=== PATIENT | male | born 1960 | race Caucasian/White ===

== ENCOUNTER 2022-02-04 00:24 | Day surgery (SDC) | payer BC, OTHER, SELFPAY ==
[2021-10-15 15:09] VITALS: BMI 26.9
--- NOTE | 2021-10-27 11:54 | PM.HPGS ---
History of Present Illness History of Present Illness Consent: Risks, benefits, and alternatives have been discussed and questions answered. Patient agrees to proceed with procedure. Chief complaint: neoplasm screening Narrative: Javi Bashir is a 61 year old male Who is referred for colon cancer screening. Review of Systems Review of Systems: All systems reviewed & are unremarkable except as noted in HPI and below PMFSH Past Medical History Medical History Anxiety Aphasia Chronic atrial fibrillation CVA (cerebral vascular accident) 07/10/2014 Hypercholesterolemia Hypertension Hypothyroidism Sleep apnea Surgical History Surgical History History of incision and drainage 06/06/20 back abscess Hydrocele Surgery 11/2017 Family History Family History Father CAD (coronary artery disease) Lung disease Mother Hypothyroidism Cancer Son CAD (coronary artery disease) Grandparent Cerebrovascular accident Social History Social History Smoking packs per day: 0.5 Smoking cigarettes per day: 10.0 Years smoked: 20 Smoking pack-years: 10.00 Smoking status: Former smoker Tobacco type: cigarettes Alcohol intake: current Drinks per week: 6 Alcohol use details: Pt drinks wine weekly. Substance use: never Substance use type: does not use Living arrangements: with family Spiritual care concerns: No Meds Home Medications and Allergies Home Medications Medication Instructions Recorded Confirmed Type amlodipine 10 mg tablet 10 mg PO DAILY #90 tabs 09/25/20 10/15/21 Rx atorvastatin 40 mg tablet 40 mg PO QHS #90 tabs 09/25/20 10/15/21 Rx metoprolol tartrate 25 mg tablet 25 mg PO BID #180 tabs 10/14/20 10/15/21 Rx levothyroxine 125 mcg tablet 125 mcg PO DAILY #90 tabs 03/05/21 10/15/21 Rx apixaban 5 mg tablet (Eliquis) 5 mg PO BID #180 tabs 05/06/21 10/15/21 Rx lisinopril 40 mg tablet 40 mg PO DAILY #90 tabs 09/16/21 10/15/21 Rx sodium sul 1.479 gram-potas ch See Rx Instructions PO PER PKG DIR 10/07/21 10/15/21 Rx 0.188 gram-magnes sul 0.225 gram #24 tabs tablet (Sutab) venlafaxine 150 mg tablet,extended 150 mg PO DAILY #90 tabs 10/27/21 Rx release 24 hr Allergies Allergy/AdvReac Type Severity Reaction Status Date / Time erythromycin base Allergy Severe Anaphylaxis Verified 10/15/21 15:09 Exam Resp: Auscultation: clear to auscultation bilaterally Cardio: Rate: regular rate Rhythm: regular rhythm GI: GI Palp: Yes Soft to palpation and No Tenderness to palpation present (GI) Assessment and Plan Assessment and plan (1) Screening for colon cancer: Code(s): Z12.11 - Encounter for screening for malignant neoplasm of colon Status: Acute Assessment and Plan: Colonoscopy with possible biopsy or polypectomy or cautery or injection of substances.
[2021-11-11 14:28] VITALS: BMI 26.9
--- NOTE | 2022-01-12 16:52 | PM.HPGS ---
History of Present Illness History of Present Illness Consent: Risks, benefits, and alternatives have been discussed and questions answered. Patient agrees to proceed with procedure. Chief complaint: neoplasm screening Narrative: Javi Bashir is a 61 year old male who was referred for colon cancer screening. Review of Systems Review of Systems: All systems reviewed & are unremarkable except as noted in HPI and below PMFSH Past Medical History Medical History (Updated 10/29/21 @ 14:54 by Georgiana Delgadillo NP) Anxiety Aphasia Chronic atrial fibrillation CVA (cerebral vascular accident) 07/10/2014 Hypercholesterolemia Hypertension Hypothyroidism Sleep apnea Surgical History Surgical History History of incision and drainage 06/06/20 back abscess Hydrocele Surgery 11/2017 Family History Family History Father CAD (coronary artery disease) Lung disease Mother Hypothyroidism Cancer Son CAD (coronary artery disease) Grandparent Cerebrovascular accident Social History Social History Smoking packs per day: 0.5 Smoking cigarettes per day: 10.0 Years smoked: 20 Smoking pack-years: 10.00 Smoking status: Former smoker Tobacco type: cigarettes Alcohol intake: current Drinks per week: 6 Alcohol use details: Pt drinks wine weekly. Substance use: never Substance use type: does not use Spiritual care concerns: No Meds Home Medications and Allergies Home Medications Medication Instructions Recorded Confirmed Type levothyroxine 125 mcg tablet 125 mcg PO DAILY #90 tabs 03/05/21 01/06/22 Rx apixaban 5 mg tablet (Eliquis) 5 mg PO BID #180 tabs 05/06/21 01/06/22 Rx lisinopril 40 mg tablet 40 mg PO DAILY #90 tabs 09/16/21 01/06/22 Rx sodium sul 1.479 gram-potas ch See Rx Instructions PO PER PKG DIR 10/07/21 01/06/22 Rx 0.188 gram-magnes sul 0.225 gram #24 tabs tablet (Sutab) venlafaxine 150 mg 150 mg PO DAILY #90 caps 10/29/21 01/06/22 Rx capsule,extended release 24 hr amlodipine 10 mg tablet See Rx Instructions .Route 11/26/21 01/06/22 Rx .COMPLEX #90 tabs metoprolol tartrate 25 mg tablet See Rx Instructions .Route 11/26/21 01/06/22 Rx .COMPLEX #180 tabs atorvastatin 40 mg tablet See Rx Instructions .Route 11/27/21 01/06/22 Rx .COMPLEX #90 tabs Allergies Allergy/AdvReac Type Severity Reaction Status Date / Time erythromycin base Allergy Severe Anaphylaxis Verified 01/06/22 09:54 Exam Const: General: alert Orientation/consciousness: patient oriented x3 Resp: Auscultation: clear to auscultation bilaterally Cardio: Rhythm: regular rhythm GI: GI Palp: Yes Soft to palpation and No Tenderness to palpation present (GI) Neuro: General: patient oriented x3 Assessment and Plan Assessment and plan (1) Screening for colon cancer: Code(s): Z12.11 - Encounter for screening for malignant neoplasm of colon Status: Acute
[2022-01-28 13:15] VITALS: BMI 26.9
[2022-02-04 11:13] VITALS: BP 132/89; PULSE 77; RESP 20; TEMP 36.4; O2SAT 100; BMI 27.3
[2022-02-04] MEDS: LACTATED RINGERS 1,000 ML 150 ML IV CONT (11:29)
--- NOTE | 2022-02-04 11:53 | PM.HPGS ---
History of Present Illness History of Present Illness Consent: Risks, benefits, and alternatives have been discussed and questions answered. Patient agrees to proceed with procedure. Chief complaint: neoplasm screening Narrative: Javi Bashir is a 61 year old male referred for colon cancer screening. Review of Systems Review of Systems: All systems reviewed & are unremarkable except as noted in HPI and below PMFSH Past Medical History Medical History Anxiety Aphasia Chronic atrial fibrillation CVA (cerebral vascular accident) 07/10/2014 Hypercholesterolemia Hypertension Hypothyroidism Sleep apnea Surgical History Surgical History History of incision and drainage 06/06/20 back abscess Hydrocele Surgery 11/2017 Family History Family History Father CAD (coronary artery disease) Lung disease Mother Hypothyroidism Cancer Son CAD (coronary artery disease) Grandparent Cerebrovascular accident Social History Social History Smoking packs per day: 0.5 Smoking cigarettes per day: 10.0 Years smoked: 20 Smoking pack-years: 10.00 Smoking status: Former smoker Tobacco type: cigarettes Alcohol intake: current Drinks per week: 6 Alcohol use details: Pt drinks wine weekly. Substance use: never Substance use type: does not use Living arrangements: with family Spiritual care concerns: No Meds Home Medications and Allergies Home Medications Medication Instructions Recorded Confirmed Type lisinopril 40 mg tablet 40 mg PO DAILY #90 tabs 09/16/21 01/25/22 Rx sodium sul 1.479 gram-potas ch See Rx Instructions PO PER PKG DIR 10/07/21 01/25/22 Rx 0.188 gram-magnes sul 0.225 gram #24 tabs tablet (Sutab) amlodipine 10 mg tablet See Rx Instructions .Route 11/26/21 01/25/22 Rx .COMPLEX #90 tabs metoprolol tartrate 25 mg tablet See Rx Instructions .Route 11/26/21 01/25/22 Rx .COMPLEX #180 tabs atorvastatin 40 mg tablet See Rx Instructions .Route 11/27/21 01/25/22 Rx .COMPLEX #90 tabs levothyroxine 125 mcg tablet See Rx Instructions .Route 01/18/22 02/04/22 Rx .COMPLEX #90 tabs venlafaxine 150 mg See Rx Instructions .Route 01/18/22 02/04/22 Rx capsule,extended release 24 hr .COMPLEX #30 caps apixaban 5 mg tablet (Eliquis) 5 mg PO BID HISTORY OF A FIB 02/04/22 History Allergies Allergy/AdvReac Type Severity Reaction Status Date / Time erythromycin base Allergy Severe Anaphylaxis Verified 02/04/22 11:12 Vital Signs Vital Signs - 24 hr 02/04/22 11:13 Temperature 36.4 C L Pulse Rate 77 Respiratory Rate 20 Blood Pressure 132/89 Pulse Oximetry 100 Oxygen Delivery Room Air Exam Resp: Auscultation: clear to auscultation bilaterally Cardio: Rate: regular rate Rhythm: regular rhythm GI: GI Palp: Yes Soft to palpation and No Tenderness to palpation present (GI) Assessment and Plan Assessment and plan (1) Screening for colon cancer: Code(s): Z12.11 - Encounter for screening for malignant neoplasm of colon Status: Acute Assessment and Plan: Colonoscopy with possible biopsy or polypectomy or cautery or injection of substances.
--- NOTE | 2022-02-04 12:00 | WPDANESEPPF ---
Anes - Initial Pre Proc Eval Procedure: Operation Date: 02/04/22 12:30 Proposed Procedures p Screening Colonoscopy - Leonard Montano MD Date/Time: 02/04/22 12:00 Surgeon: Leonard Montano MD Pre Op Diagnosis: neoplasm screening Patient Data Age: 61 Gender: M Height: 1.88 m Weight: 96.8 kg Last Vital Signs Temp 97.5 F L 02/04/22 11:13 Pulse 77 02/04/22 11:13 Resp 20 02/04/22 11:13 BP 132/89 02/04/22 11:13 Pulse Ox 100 02/04/22 11:13 O2 Del Method Room Air 02/04/22 11:13 Allergies Allergy/AdvReac Type Severity Reaction Status Date / Time erythromycin base Allergy Severe Anaphylaxis Verified 02/04/22 11:12 Home Medications Medication Instructions Recorded Confirmed Type lisinopril 40 mg tablet 40 mg PO DAILY #90 tabs 09/16/21 01/25/22 Rx sodium sul 1.479 gram-potas ch See Rx Instructions PO PER PKG DIR 10/07/21 01/25/22 Rx 0.188 gram-magnes sul 0.225 gram #24 tabs tablet (Sutab) amlodipine 10 mg tablet See Rx Instructions .Route 11/26/21 01/25/22 Rx .COMPLEX #90 tabs metoprolol tartrate 25 mg tablet See Rx Instructions .Route 11/26/21 01/25/22 Rx .COMPLEX #180 tabs atorvastatin 40 mg tablet See Rx Instructions .Route 11/27/21 01/25/22 Rx .COMPLEX #90 tabs levothyroxine 125 mcg tablet See Rx Instructions .Route 01/18/22 02/04/22 Rx .COMPLEX #90 tabs venlafaxine 150 mg See Rx Instructions .Route 01/18/22 02/04/22 Rx capsule,extended release 24 hr .COMPLEX #30 caps apixaban 5 mg tablet (Eliquis) 5 mg PO BID HISTORY OF A FIB 02/04/22 History Patient hx anesthesia problems: none Family hx anesthesia problems: none Results Review: All pre-operative results and documents have been reviewed as part of the pre-operative evaluation. [facility] Past Medical History Medical History Anxiety Aphasia Chronic atrial fibrillation CVA (cerebral vascular accident) 07/10/2014 Hypercholesterolemia Hypertension Hypothyroidism Sleep apnea Surgical History Surgical History History of incision and drainage 06/06/20 back abscess Hydrocele Surgery 11/2017 Family History Family History Father CAD (coronary artery disease) Lung disease Mother Hypothyroidism Cancer Son CAD (coronary artery disease) Grandparent Cerebrovascular accident Social History Social History Smoking packs per day: 0.5 Smoking cigarettes per day: 10.0 Years smoked: 20 Smoking pack-years: 10.00 Smoking status: Former smoker Tobacco type: cigarettes Alcohol intake: current Drinks per week: 6 Alcohol use details: Pt drinks wine weekly. Substance use: never Substance use type: does not use Living arrangements: with family Spiritual care concerns: No Anes - Eval Final PreProcedure Day of Procedure 02/04/22 12:00 Patient weight: normal Heart: regular rate and rhythm Lungs: clear to auscultation Airway: Mallampati scale class III Neurological: alert and oriented Last oral intake: >/= 8 hours ASA classification: III Emergent: no Anesthetic plan: proceed Anesthesia type and monitoring: general GIVS and standard monitoring Results Review: All pre-operative results and documents have been reviewed as part of the pre-operative evaluation. Informed Consent: The patient's anesthetic plan and its attendant risks and benefits were discussed with the patient/family/POA. Questions were solicited and answers provided to the satisfaction of the patient/family/POA.
[2022-02-04 12:48] VITALS: BP 95/71; PULSE 71; RESP 18; O2SAT 93
[2022-02-04 12:58] VITALS: BP 109/75; PULSE 64; RESP 20; O2SAT 99
[2022-02-04 13:08] VITALS: BP 116/73; PULSE 68; RESP 19; O2SAT 100
== END 2022-02-04 13:23 | disposition home or self-care (01) ==
PROVIDERS: PCP Internal Medicine; Visit Provider Internal Medicine Gastroenterology
PROC: 0DJD8ZZ Inspection of Lower Intestinal Tract, Via Natural or Artificial Opening Endoscopic (ICD-10-PCS; CPT 45378; principal; 2022-02-04 12:30)
DX: Z12.11 Encounter for screening for malignant neoplasm of colon (principal); D12.3 Benign neoplasm of transverse colon; D12.5 Benign neoplasm of sigmoid colon; I10 Essential (primary) hypertension; E78.00 Pure hypercholesterolemia, unspecified; E03.9 Hypothyroidism, unspecified; G47.30 Sleep apnea, unspecified; I48.20 Chronic atrial fibrillation, unspecified; F41.9 Anxiety disorder, unspecified; Z79.01 Long term (current) use of anticoagulants; Z87.891 Personal history of nicotine dependence
CPT/HCPCS: 45380; 45385; 88305; J2704; J7120

== ENCOUNTER 2023-06-22 10:19 | Outpatient (CLI) | payer OTHER, SELFPAY ==
[2023-06-22 10:44] LABS: Basophils Absolute Auto 0.04 K/mm3 (0.00-0.10); Basophils Percent Auto 0.7 % (0.0-1.0); Eosinophils Absolute Auto 0.22 K/mm3 (0.02-0.50); Eosinophils Percent Auto 3.9 % (1.0-6.0); Hematocrit 45.8 % (40.0-54.0); Immature Granulocyte Absolute 0.02 K/mm3 (0.00-0.00); Immature Granulocyte Percent A 0.4 % (0.0-0.0); Lymphocytes Absolute Auto 1.51 K/mm3 (1.10-4.50); Lymphocytes Percent Auto 26.8 % (18.0-42.0); Mean Corpuscular HGB Conc 34.9 g/dL (32.0-36.0); Mean Corpuscular Hemoglobin 31.2 pg (27.0-31.0); Mean Corpuscular Volume 89.3 fL (78.0-102.0); Mean Platelet Volume 9.9 fl (8.7-11.0); Monocytes Absolute Auto 0.49 K/mm3 (0.10-0.90); Monocytes Percent Auto 8.7 % (2.0-11.0); Neutrophils Absolute Auto 3.4 K/mm3 (1.7-7.2); Neutrophils Percent Auto 59.5 % (50.0-70.0); Platelet Count Result 195 K/mm3 (150-420); Red Blood Count 5.13 M/mm3 (4.70-6.10); Red Cell Distribution Width 12.3 % (11.6-14.4); White Blood Count 5.6 K/mm3 (4.8-10.8)
[2023-06-22 11:28] LABS: Alanine Aminotransferase 51 U/L (16-63); Albumin Level 4.2 g/dL (3.4-5.0); Alkaline Phosphatase 68 U/L (46-116); Anion Gap 10 mmol/L (8-16); Aspartate Amino Transferase 25 U/L (15-37); Bilirubin,Total 0.8 mg/dL (0.00-1.00); Blood Urea Nitrogen 18 mg/dL (7-18); Calcium 8.6 mg/dL (8.5-10.1); Carbon Dioxide 27 mmol/L (21-32); Chloride 101 mmol/L (98-108); Cholesterol 150 mg/dL (0-200); Estimated Glomerular Filt Rate > 60; Glucose 101 mg/dL (70-99); HDL Direct 53 mg/dL (40-60); LDL Cholesterol Calculated 78 mg/dL (<130); Osmolality Calculated 287 mOsm/kg (285-295); Prostate Specific Antigen 0.8 ng/mL (< OR = 4.0); Sodium 138 mmol/L (136-145); Total Protein 7.4 g/dL (6.4-8.2); Triglycerides 93 mg/dL (0-150)
== END 2023-06-22 10:20 | disposition home or self-care (01) ==
LOC: CHSLAB 10:21
PROVIDERS: PCP Internal Medicine; Visit Provider Nurse Practitioner
DX: Z13.29 Encounter for screening for other suspected endocrine disorder (principal); Z12.5 Encounter for screening for malignant neoplasm of prostate; I10 Essential (primary) hypertension; E78.00 Pure hypercholesterolemia, unspecified; E03.9 Hypothyroidism, unspecified; R31.9 Hematuria, unspecified
CPT/HCPCS: 36415; 80053; 80061; 84153; 84443; 85025; G0103

== ENCOUNTER 2024-06-07 11:23 | Outpatient (CLI) | payer OTHER, SELFPAY ==
--- NOTE | ~2024-06-07 | US_ITS ---
EXAMINATION: US thyroid DATE: 06/07/2024 12:09 INDICATION: Hypothyroidism, unspecified. TECHNIQUE: Multiple ultrasound images of the thyroid were obtained. COMPARISON: None. FINDINGS: The right thyroid lobe measures 4.7 x 0.9 x 1.2 cm. The left thyroid lobe measures 4.7 x 1.9 x 0.7 c m. The thyroid demonstrates heterogeneous echogenicity. Vascularity is normal. The left thyroid lobe , there is a 2.0 cm solid, hypoechoic, wider than tall nodule with lobulated margin without echogenic foci (TI-RADS TR4). IMPRESSION: 1. Left thyroid nodule. Ultrasound-guided fine-needle aspiration is recommended. Reviewed, dictated and finalized at location A. T SPA DESK IMPRESSION: 1. Left thyroid nodule. Ultrasound-guided fine-needle aspiration is recommended .
--- OUTSIDE RECORDS SUMMARY | 2024-06-07 11:48 | XMS_ITS | Clinical Summary ---
Author Organization [facility] Address [address] [place] [address] Phone Care Team Providers Care Survey Research Professor Name Role Phone Abel Mckenna DO Primary Care Provider Edward Ferrer MD Unavailable Allergies Active Allergy Reactions Criticality Noted Date Comments Azithromycin Swelling,Other (see Comments) High 05/2017 Throat swells Medications apixaban (ELIQUIS) 5 MG Tablet Take 5 mg by mouth 2 times daily. Active METOPROLOL TARTRATE PO Take 25 mg by mouth 2 times daily. Active lisinopril (PRINIVIL, ZESTRIL) 10 MG Tablet Take 10 mg by mouth daily. Active levothyroxine (SYNTHROID) 150 MCG Tablet Take 125 mcg by mouth daily. Active venlafaxine (EFFEXOR) 75 MG Tablet Take 225 mg by mouth daily. Active atorvastatin (LIPITOR) 80 MG Tablet Take 80 mg by mouth daily. Active amLODIPine (NORVASC) 10 MG Tablet Take 10 mg by mouth daily. 11/28/2021 Active atorvastatin (LIPITOR) 40 MG Tablet TAKE 1 TABLET BY MOUTH AT BEDTIME 11/27/2021 Active lisinopril (PRINIVIL, ZESTRIL) 40 MG Tablet Take 40 mg by mouth daily. 11/29/2021 Active oxybutynin (DITROPAN-XL) 10 MG TABLET SR 24 HR Take 10 mg by mouth daily. 11/29/2023 Active tamsulosin (FLOMAX) 0.4 MG Capsule TAKE 1 CAPSULE BY MOUTH DAILY AT BEDTIME 12/07/2023 Active Active Problems Problem Noted Date Diagnosed Date Adjustment disorder with anxiety 06/21/2018 Scrotal hematoma 11/15/2017 Hydrocele 10/25/2017 Immunizations Immunization Administration Dates Next Due Influenza Vaccine 02/07/2015 Influenza Vaccine, MDCK,quadrivalent, pres free 03/05/2016 Influenza Vaccine, Quadrivalent, PF 01/25/2018,1 Influenza, high-dose, trivalent, PF 02/26/2014,1 04/23/2012 Family History Medical History Relation Name Comments Heart Attack Father Urinary Tract Infections Mother Relation Name Status Comments Father Mother Social History Tobacco Use Types Packs/Day Years Used Date Smoking Tobacco: Former Cigarettes Q uit: 10/17/2002 Smokeless Tobacco: Never Alcohol Use Standard Drinks/Week Comments Yes 4 (1 standard drink = 0.6 oz pur e alcohol) Sexually Active Control Partners Comments Not Currently Female Sex and Gender Information Value Date Recorded Sex Assigned at Not on file Legal Sex Male 11:59 PM CDT Gender Identity Not on file Sexual Orientation Not on file Last Filed Vital Signs Vital Sign Reading Time Taken Comments Blood Pressure 130/86 01/02/2024 3:26 PM CDT Pulse 70 01/02/2024 3:26 PM CDT Temperature 36.7 C (98.1 F) 01/02/2024 3:26 PM CDT Respiratory Rate 18 01/02/2024 3:26 PM CDT Oxygen Saturation 97% 01/02/2024 3:26 PM CDT Inhaled Oxygen Concentration - - Weight 112.1 kg (247 lb 3.2 oz) 01/02/2024 3:26 PM CDT Height 188 cm (6' 2 ) 01/02/2024 3:26 PM CDT Body Mass Index 31.74 01/02/2024 3:26 PM CDT Plan of Treatment Upcoming Encounters Date Type Department Care Team (Late st Contact Info) Description 01/01/2025 11:00 AM CDT Office Visit [facility] - Neurology [facility] [address] [place] [address] Edward Ferrer MD [address] [place] [address] Health Maintenance Due Date Last Done Comments Hepatitis C Virus (HCV) Screening 1961 TdaP Immunization 1961 Colonoscopy 2006 Colorectal Cancer Screening 2006 Cologuard 2011 Immunochemical Fecal Occult Blood 2011 Pneumococcal Immunization (50+ years) (1 of 1 - PCV) 2011 Zoster Immunization (1 of 2) 2011 Influenza Immunization (#1) 12/18/202301/17, 01/22/2022, 04/12/2021, Additional history exists SARS-COV-2 Immunization ( season) 2023 02/11/2023, 04/12/2021, 08/24/2020 Respiratory Syncytial Virus (RSV) Immunization (Adult) (1 - 1-dose 75+ series) 2036 PSA Discussion Completed 10/17/2017 Hepatitis B Immunization Aged Out No longer eligible based on patient's age to complete this topic Meningococcal Immunization (ACWY) Aged Out No longer eligible based on patient's age to complete this topic Rotavirus Immunization Aged Out No lo nger eligible based on patient's age to complete this topic Procedures Procedure Name Priority Date/Time Associated Diagnosis Comments PSA SCREEN Routine 10/17/2017 10:33 AM CDT Prostate cancer screening from Last 3 Months or Most Recently Relevant to Health Maintenance Results * PSA SCREEN (10/17/2017 10:33 AM CDT) PSA SCREEN, TOTAL 0.88 0.00 - 4.00 ng/mL 10/17/2017 1:39 PM CDT [facility] Blood specimen (specimen) Venipuncture / Unknown 10/17/2017 10:33 AM CDT 10/17/2017 10:42 AM CDT Narrative [facility] - 10/17/2017 1:39 PM CDT PSA NOTE: The PSA value should be used in conjunction with information available from clinical evaluation and other diagnostic procedures. 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
--- OUTSIDE RECORDS SUMMARY | 2024-06-07 11:48 | XMS_ITS ---
Author Organization [facility] Address [address] [place] [address] Phone Care Team Providers Care Drupal Php Developer Name Role Phone Abel Mckenna DO Primary Care Provider Edward Ferrer MD Unavailable [phone] [facility] Status:Enrolled (Active) Start date:01/18/2024 Enrollment date:01/18/2024 Related social drivers of health:Intimate Partner Violence, Social Connections, Alcohol Use, Tobacco Use, Financial Resource Strain,Depression, Stress, Physical Activity, Food Insecurity, Transportation Needs, Housing Stability, Utilities Continued Care and Services Coordination
== END 2024-06-07 11:24 | disposition home or self-care (01) ==
PROVIDERS: Visit Provider Internal Medicine Endocrinology, Diabetes & Metabolism
DX: E03.9 Hypothyroidism, unspecified (principal); E04.1 Nontoxic single thyroid nodule
CPT/HCPCS: 76536

== ENCOUNTER 2024-07-19 12:31 | Outpatient (CLI) | payer OTHER, SELFPAY ==
--- OUTSIDE RECORDS SUMMARY | 2024-06-28 14:05 | XMS_ITS | CONTINUITY OF CARE DOCUMENT ---
Author Name ravin luis antonioanton Address Unknown Organization [facility] Address [address] [place] [address] Phone [phone] Care Team Providers Care Sugar Drier Name Role Phone Jostin Suazo MD Unavailable PLACIDO CESAR DO Unavailable [phone] PLACIDO CESAR DO Unavailable PROBLEMS Condition Status Date Provider Notes Cardiology examination active Saranya Sanders in DIORAMIST Chronic atrial fibrillation active Saranya hood DIORAMIST Hypertension active Saranya Kaplan DIORAMIST Hyperlipidemia active Saranya Kaplan DIORAMIST Hypothyroidism active Saranya Kaplan DIORAMIST Obstructive sleep apnea active Saranya alvarado DIORAMIST Atrial Fibrillation active ? Saranya Kaplan NP Cerebrovascular Disease active ? Saranya alvarado DIORAMIST (History of) CVA active Jostin Suazo MD C V A / Stroke active Jostin Suazo MD (His tory of) Shortness of breath active Merced Ventimigl ia OIL REFINERY PROCESS TECHNICIAN Dizziness active Merced Ventimiglia OIL REFINERY PROCESS TECHNICIAN ENCOUNTERS Date Type Provider Location Encounter Diag nosis 10/31 - 10/31 In-person encounter Office Visit Jostin Suazo MD [place] [facility] 09/19 - 09/20 In-person encounter Office Visit Jostin Suazo MD [place] [facility] Shortness of breathDizziness 10/01 - 10/01 In-person encounter Office Visit Jostin Suazo MD [facility] C V A / Stroke 08/01 - 08/02 In-person encounter Office Visit Jostin Suazo MD [place] [facility] CVA 07/04 - 07/04 In-person encounter Office Visit Jostin Suazo MD [facility] Cardiology examinationChronic atrial fibrillationHypertensionHyperlipidemiaHypothyroidis mObstructive sleep apneaAtrial FibrillationCerebrovascular Disease VITAL SIGNS Date Observation Value Provider Body Mass Index (Ratio) 30.99 kg/m2 Jasiel Suazo MD blood pressure, diastolic 71 mm[Hg] Ja et blood pressure, systolic 116 mm[Hg] Jar ret pulse rate 73 /min [facility] y oxygen saturation, oximetry 97 % [facility] respiratory rate E&M 14 /min [facility] blood pressure, cuff size regular [facility] weight E&M 248 [lb_av] [facility] y height E&M 75 [in_i] [facility] y Body Mass Index (Ratio) 32.22 kg/m2 Jasiel Suazo MD blood pressure, diastolic 80 mm[Hg] Li nkLogic blood pressure, systolic 128 mm[Hg] Cynthia ogic blood pressure, diastolic 80 mm[Hg] Li nkLog blood pressure, systolic 128 mm[Hg] Cynthia og oxygen saturation, oximetry 98 % Merced Ventimiglia [facility] pulse rate 63 /min Merced Ventimig aguilar [facility] blood pressure, diastolic 80 mm[Hg] Am riddhi Ventimiglia OIL REFINERY PROCESS TECHNICIAN blood pressure, systolic 128 mm[Hg] [place] nda Ventimiglia [facility] respiratory rate E&M 16 /min Merced Ventimiglia [facility] weight E&M 257.8 [lb_av] Merced ferro OIL REFINERY PROCESS TECHNICIAN Body Mass Index (Ratio) 27.20 kg/m2 Jasiel Suazo MD blood pressure, diastolic 85 mm[Hg] Li nkLogic blood pressure, systolic 145 mm[Hg] Cynthia kLogic blood pressure, cuff size regular As maryan Munoz blood pressure, diastolic 85 mm[Hg] As maryan Munoz blood pressure, systolic 145 mm[Hg] Austen toledo Alexander oxygen saturation, oximetry 98 % Clarisse Munoz pulse rate 72 /min Clarisse Munoz weight E&M 217.6 [lb_av] Clarisse Munoz Body Mass Index (Ratio) 25.12 kg/m2 Jasiel Suazo MD blood pressure, diastolic 80 mm[Hg] Anthony guerrero Miguel blood pressure, systolic 120 mm[Hg] Hope staples Miguel oxygen saturation, oximetry 98 % [facility] E&M 16 /min [facility] Miguel pulse rate 82 /min [facility] E&M 201 [lb_av] [facility] blood pressure, resting Yes [facility] Miguel height E&M 75 [in_i] Lashae OMiguel Body Mass Index (Ratio) 26.37 kg/m2 aJsiel Suazo MD blood pressure, diastolic 72 mm[Hg] Ch astity Gabriel blood pressure, systolic 110 mm[Hg] Toña stity Gabriel oxygen saturation, oximetry 98 % Chastity Gabriel respiratory rate E&M 16 /min Chastit y Gabriel pulse rate 71 /min Chastity Gabriel weight E&M 211 [lb_av] Chastity Gabriel height E&M 75 [in_i] Chastity Gabriel ALLERGIES Allergy Name Onset Date Reaction Criticality Status ERYTHROMYCIN High Criticality active RESULTS Date Observation Value Provider Reference Range Interpretation Location 3 ferritin, serum 434 ng/mL [facility] 30-400 High 3 free thyroxine index 0.1 [facility] 1.2-4.9 Low 3 triiodothyronine resin uptake 14 % [facility] 24-39 Low 3 thyroxine, serum, total 0.5 ug/dL [facility] 4.5-12.0 Critical low 3 thyroid stimulating hormone, serum 165.000 u[IU]/mL [facility] 0.450-4.500 High 3 pro brain natriuretic peptide 524 pg/mL [facility] 0-210 High 3 iron saturation percent, serum 47 % [facility] 15-55 3 iron, serum 163 ug/dL [facility] 38-169 3 iron binding capacity, unsaturated 181 ug/dL [facility] 796-406 8778/06/1 3 iron binding capacity, total 344 ug/dL [facility] 572-234 6734/06/1 3 lipoprotein, beta, serum, point, quantitative, calculated 66 mg/dL [facility] 0-99 3 HDL cholesterol, serum 70 mg/dL [facility] >39 3 triglyceride, serum, random 83 mg/dL [facility] 0-149 3 cholesterol, serum 152 mg/dL [facility] 194-316 8137/06/1 3 calcium, serum 9.4 mg/dL [facility] 8.6-10.2 3 carbon dioxide, venous blood 25 mmol/L [facility] 20-29 3 chloride, serum 98 mmol/L [facility] 96-106 3 potassium, serum 4.0 mmol/L [facility] 3.5-5.2 3 sodium, serum 139 mmol/L [facility] 087-231 5253/06/1 3 urea nitrogen/creatinine ratio, serum 12 [facility] 10-24 3 creatinine, serum 1.51 mg/dL [facility] 0.76-1.27 High 3 urea nitrogen, blood 18 mg/dL [facility] 8-27 3 blood glucose, random 95 mg/dL [facility] 70-99 3 basophil count, absolute 0.1 x10E3/uL [facility] 0.0-0.2 3 Eosinophil Absolute Count 0.2 X10E3/UL [facility] 0.0-0.4 3 monocyte count, blood, automated 0.4 X10E3/UL [facility] 0.1-0.9 3 lymphocyte count, blood, automated 2.1 X10E3/UL [facility] 0.7-3.1 3 Absolute Neutrophils 3.4 X10E3/UL [facility] 1.4-7.0 3 basophils as percent of blood leukocytes 1 % [facility] Not Estab. 3 eosinophils as percent of blood leukocytes 4 % [facility] Not Estab. 3 monocytes as percent of blood leukocytes 7 % [facility] Not Estab. 3 lymphocytes as percent of blood leukocytes 33 % [facility] Not Estab. 3 neutrophils as percent of blood leukocytes 55 % [facility] Not Estab. 3 platelet count 139 X10E3/UL [facility] 150-450 Low 3 red blood cell distribution width 14.0 % [facility] 11.6-15.4 3 mean corpuscular hemoglobin concentration, RBC 33.8 G/DL [facility] 31.5-35.7 3 mean corpuscular hemoglobin, RBC 31.0 pg [facility] 26.6-33.0 3 mean corpuscular volume, RBC 92 fL [facility] 79-97 3 hematocrit, blood 41.1 % [facility] 37.5-51.0 3 hemoglobin, blood 13.9 g/dL [facility] 13.0-17.7 3 erythrocyte (RBC) count 4.48 X10E6/UL [facility] 4.14-5.80 3 leukocyte count, blood 6.2 X10E3/UL [facility] 3.4-10.8 HISTORY OF MEDICATION USE Medication Status Instructions Dates Provider Indications Com ments tamsulosin 0.4 mg capsule active TAKE 1 CAPSULE EVERY DAY oxybutynin chloride 10 mg tablet extended release 24hr active Take 1 tablet by mouth once a day amlodipine 10 mg tablet active Take 1 tablet by mouth once a day due for follow up levothyroxine 125 mcg tablet active 1 capsule by mouth once a day Merced Ventimiglia OIL REFINERY PROCESS TECHNICIAN #30, 30 days supply, Filled 05/09/2018 lisinopril 10 mg tablet active 1 tablet by mouth once a day Merecd Ventimiglia OIL REFINERY PROCESS TECHNICIAN #30, 30 days supply, Filled 06/11/2018 Eliquis 5 mg tablet active 1 capsule twice a day Merced Ventimiglia OIL REFINERY PROCESS TECHNICIAN #60, 30 days supply, Filled 06/12/2018 atorvastatin 80 mg tablet active 1 capsule once a day Merced Ventimiglia OIL REFINERY PROCESS TECHNICIAN #30, 30 days supply, Filled 06/12/2018 metoprolol tartrate 25 mg tablet active 1 capsule twice a day Merced Ventimiglia OIL REFINERY PROCESS TECHNICIAN #60, 30 days supply, Filled 06/21/2018 venlafaxine 75 mg capsule,extended release 24hr active 1 capsule by mouth once a day Merced Ventimiglia OIL REFINERY PROCESS TECHNICIAN #30, 30 days supply, Filled 06/27/2018 SOCIAL HISTORY Date Observation Value Provider personal history of marijuana use no Wagner Avery NP drug use no Wagner Avery NP alcohol use, average drinks per day 1 /d Wagner Avery NP alcohol use, type wine Wagner fiore NP alcohol use yes Wagner Avery NP passive cigarette sm alexandra exposure no Wagner Avery NP cigarette use yes Wagner Avery DIORAMIST smoking status Former smoker Wagner Leone ri DIORAMIST personal history of marijuana use no Merced Ventimiglia [facility] drug use no Merced Ventimig aguilar [facility] alcohol use, type wine Merced Dennis timiglia [facility] alcohol use, average drinks per day 1 /d Merced Ventimiglia [facility] alcohol use yes Merced Ventimig aguilar [facility] passive cigarette sm alexandra exposure no Merced Ventimiglia [facility] cigarette use yes Merced Ventimi glia [facility] smoking status Former smoker Mercedriddhi Powell miglia [facility] social history E&M Marital Statu s: C hildren: 2 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 Jostin Suazo MD social history reviewed E&M revi ewed - no changes required Jostin Suazo MD cigarette use yes Lashae O'Miguel smoking status Former smoker Lashae O'Adelia l cigarette use yes Ines Rios smoking status Former smoker Toñachhaya Hog ue FAMILY HISTORY Family Member Condition Father Family History of Co ngestive Heart Failure: INSURANCE PROVIDERS Payer name Policy type / Coverage type [place] red libertarian [place] ELIZONDO MEDICAID Medicaid [id number] ADVANCE DIRECTIVES Name Date DISCUSSED - NO DECISION MADE TREATMENT PLAN Date Name Performer [id number],S, Jostin ham MD [id number],S, Jostin Kourtney ham MD [id number],S, Jostin ham MD [id number],S, Jostin Oconnell jitendra PALOMINO [id number],SJostin Kourtney ham MD Cardiology: L abs Reviewed: T SH: 165.000 (09/29/2023) Total T4: 0.5 (09/29/2023) C hol: 152 (09/29/2023) HDL: 70 (09/29/2023) LDL: 66 (09/29/2023) T (09/29/2023) His updated medication list for this problem includes: Levothyroxine 125 Mcg Tablet (Levothyroxine) ..... 1 capsule by mouth once a day D iscussed sleepiness/drowsiness likely related to his thyroid. R ecommend following up with Endocrinology Wagner Avery NP Cardiology: T he patient is using CPAP on a regular basis. The patient has been benefiting from therapy and should continue use. Wagner Avery NP Cardiology: H eart Monitor 09/15-09/19/2023 A trial Fibrillation/ Atrial Fibrillation RVR with rare VE in t he form of isolated beats.Fastest heart rate was 125 bpm, a verage 56 bpm, and slowest 41 bpm. Total VEbeats: 7 8 (<0.1%) On Eliquis for AC with no bleeding issues/concerns H is updated medication list for this problem includes: Metoprolol Tartrate 25 Mg Tablet (Metoprolol tartrate) ..... 1 capsule twice a day Wagner Avery NP Cardiology: H is updated medication list for this problem includes: Atorvastatin 80 Mg Tablet (Atorvastatin) ..... 1 capsule once a day C HOL: 152 (09/29/2023) LDL: 66 (09/29/2023) HDL: 70 (09/29/2023) T (09/29/2023) Wagner Avery NP Cardiology: B P today: 116/71 P rior BP: 128/80 (09/20/2023) His updated medication list for this problem includes: Amlodipine 10 Mg Tablet (Amlodipine) ..... Take 1 tablet by mouth once a day due for follow up Lisinopril 10 Mg Tablet (Lisinopril) ..... 1 tablet by mouth once a day Metoprolol Tartrate 25 Mg Tablet (Metoprolol tartrate) ..... 1 capsule twice a day Wagner Avery NP Cardiology: S ymptoms resolved per patient E cho 10/2023 ef 65%, mild MR, mod AI Wagner Avery NP Cardiology: N o current symptoms Carotid duplex wnl 10/2023 H eart Monitor 09/16/23-09/19/23 A trial Fibrillation/ Atrial Fibrillation RVR with rare VE in t he form of isolated beats.Fastest heart rate was 125 bpm, a verage 56 bpm, and slowest 41 bpm. Total VEbeats: 7 8 (<0.1%) Wagner Avery NP Cardiology:The patie nt is using CPAP on a regular basis. The patient has been benefiting from therapy and should continue use. Mercedriddih Santiago [facility] Cardiology: H is updated medication list for this problem includes: Atorvastatin 80 Mg Tablet (Atorvastatin) ..... 1 capsule once a day [facility] Cardiology:controlle d H is updated medication list for this problem includes: Lisinopril 10 Mg Tablet (Lisinopril) ..... 1 tablet by mouth once a day Metoprolol Tartrate 25 Mg Tablet (Metoprolol tartrate) ..... 1 capsule twice a day Amlodipine 10 Mg Tablet (Amlodipine) [facility] Cardiology:chronic i n nature r ecent tele monitor showed H is updated medication list for this problem includes: Metoprolol Tartrate 25 Mg Tablet (Metoprolol tartrate) ..... 1 capsule twice a day Mercedriddhi Santiago [facility] Cardiology:More pers istent recently associated with his SOB N o acute focal neuro deficit noted on exam today W ill do carotid duplex to r/o stenosis w ill review tele monitor Merced Rosaskatherinebalaji [facility] Cardiology:Patient i s reporting new onset SOB with exertion that is minimal and unusual for him. Denies any associated chest pain or pressure E KG today shows afib with no acute ST/T wave changes w ill plan echo to look for any LV dysfunction or WMA W ill plan stress test to look for any ischemia W ill do CXR to look for any acute cardiopulmonary process W ill do labs to look for underlying source H is updated medication list for this problem includes: Lisinopril 10 Mg Tablet (Lisinopril) ..... 1 tablet by mouth once a day Metoprolol Tartrate 25 Mg Tablet (Metoprolol tartrate) ..... 1 capsule twice a day Amlodipine 10 Mg Tablet (Amlodipine) Merced Jack [facility] Cardiology Jostin Suazo MD Cardiology Jostin Suazo MD Cardiology Jostin Suazo MD Cardiology Jostin Suazo MD Cardiology Jostin Suazo MD Cardiology Jostin Suazo MD Cardiology Jostin Suazo MD Cardiology Jostin Suazo MD Cardiology Jostin Suazo MD Cardiology Jostin Suazo MD Cardiology Jostin Suazo MD Cardiology:Hx CVA 4 years ago. Had carotid dopplers with neurologist. Saranya Kaplan NP Cardiology:will fax labs from pa imarys office. Saranya Kaplan NP Cardiology:controlle d. continue lisinopril will order Echo. Saranya Kaplan NP Cardiology:Eliquis for AC. Black Kaplan NP Cardiology Saranya Kaplan NP Cardiology:uses CPAP nightly. Last sleep study was many years ago. Will schedule titration sleep study. Saranya Kaplan NP Date Name TSH, free T4, total T3 TSH, free T4, total T3 LIPID PANEL IRON AND TOTAL IRON BINDING CAPACITY FERRITIN CBC (INCLUDES DIFF/P LT) PROBNP, N TERMINAL BASIC METABOLIC PANE L W/EGFR X-Ray, Chest 2 View Carotid Duplex Bilat eral Complete Echo Stress Regadenoson Sleep Study Titratio n Complete Echo HISTORY OF PROCEDURES Procedure Date Procedure Name Provider Procedure Notes S tatus EKG Saranya marcano
--- OUTSIDE RECORDS SUMMARY | 2024-06-28 14:05 | XMS_ITS | Clinical Summary ---
Author Organization [facility] Address [address] [place] [address] Phone Care Team Providers Care Lusterer Name Role Phone Abel Mckenna DO Primary Care Provider Edward Ferrer MD Unavailable [phone] Allergies Active Allergy Reactions Criticality Noted Date [...] 01/01/2025 11:00 AM CDT Office Visit [facility] - Neurology [facility] [address] [place] [address] Edward Ferrer MD [address] [place] [address] Health Maintenance Due Date Last [...] 4.00 ng/mL 10/17/2017 1:39 PM CDT [facility] Blood specimen (specimen) Venipuncture / Unknown 10/17/2017 10:33 AM CDT 10/17/2017 10:42 AM CDT Narrative [facility] - 10/17/2017 1:39 PM CDT PSA NOTE: The PSA value should be used in conjunction with information available from clinical evaluation and other diagnostic procedures. 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
--- OUTSIDE RECORDS SUMMARY | 2024-06-28 14:05 | XMS_ITS ---
Author Organization [facility] Address [address] [place] [address] Phone Care Team Providers Care Palliative Senior Np Name Role Phone Abel Mckenna DO Primary Care Provider Edward Ferrer MD Unavailable [phone] [facility] Status:Enrolled (Active) Start date:01/18/2024 Enrollment date:01/18/2024 Related social drivers of health:Intimate Partner Violence, Social Connections, Alcohol Use, Tobacco Use, Financial Resource Strain,Depression, Stress, Physical Activity, Food Insecurity, Transportation Needs, Housing Stability, Utilities Continued Care and Services Coordination
--- NOTE | ~2024-07-19 | US_ITS ---
EXAMINATION: US FNA w image guidance DATE: 07/19/2024 13:46 INDICATION: 2 cm left sided thyroid 4 nodule. TECHNIQUE: A time-out was performed to verify the patient's name, date of , and procedure to be performed . The procedure and its benefits and risks were discussed with the patient. Risks specifically discus sed included bleeding and infection. The patient understood the risks and agreed to proceed. The neck was prepped and draped in the usual sterile manner. 4 mL 1% lidocaine was used for local anesthesia . 7 passes were made with a 25G needle into the lesion. Appropriate needle location was documented with continuous sonographic guidance. A sterile bandage was applied. There were no immediate compli cations. FINDINGS: Grayscale ultrasound images demonstrate biopsy needles advanced into the previously noted 2 cm very h ypoechoic left thyroid nodule of concern. IMPRESSION: 1. Successful ultrasound-guided fine needle aspiration of the 2 cm very hypoechoic left thyroid nodu le of concern. Reviewed, dictated and finalized at location A. IMPRESSION: 1. Successful ultrasound-guided fine needle aspiration of the 2 cm very hypoec hoic left thyroid nodule of concern.
--- OUTSIDE RECORDS SUMMARY | 2024-07-19 12:47 | XMS_ITS | CONTINUITY OF CARE DOCUMENT ---
Author Name ravin luis antonioanton Address Unknown Organization [facility] Address [address] [place] [address] Phone [phone] Care Team Providers Care Fur Dry Cleaner Name Role Phone Jostin Suazo MD Unavailable [phone] PLACIDO CESAR DO Unavailable [phone] PLACIDO CESAR DO Unavailable [phone] PROBLEMS Condition Status Date Provider Notes Cardiology examination active Saranya Sanders in CRNA Chronic atrial fibrillation active Saranya hood CRNA Hypertension active Saranya Kaplan CRNA Hyperlipidemia active Saranya Kaplan CRNA Hypothyroidism active Saranya Kaplan CRNA Obstructive sleep apnea active Saranya alvarado CRNA Atrial Fibrillation active ? Saranya Kaplan NP Cerebrovascular Disease active ? Saranya alvarado CRNA (History of) CVA active Jostin Suazo MD C V A / Stroke active Jostin Suazo MD (His tory of) Shortness of breath active Merced Ventimigl ia TOBACCO SIZER Dizziness active Merced Ventimiglia TOBACCO SIZER ENCOUNTERS Date Type Provider Location Encounter Diag nosis 10/31 - 10/31 In-person encounter Office Visit Jostin Suazo MD [facility] 09/19 - 09/20 In-person encounter Office Visit Jostin Suazo MD [facility] Shortness of breathDizziness 10/01 - 10/01 In-person encounter Office Visit Jostin Suazo MD [facility] Office C V A / Stroke 08/01 - 08/02 In-person encounter Office Visit Jostin Suazo MD [place] CVA 07/04 - 07/04 In-person encounter Office Visit Jostin Suazo MD [facility] Cardiology examinationChronic atrial fibrillationHypertensionHyperlipidemiaHypothyroidis mObstructive sleep apneaAtrial FibrillationCerebrovascular Disease VITAL SIGNS Date Observation Value Provider Body Mass Index (Ratio) 30.99 kg/m2 Jasiel Suazo MD blood pressure, diastolic 71 mm[Hg] Ja et blood pressure, systolic 116 mm[Hg] Jar ret pulse rate 73 /min [facility] y oxygen saturation, oximetry 97 % [facility] respiratory rate E&M 14 /min [facility] blood pressure, cuff size regular [facility] weight E&M 248 [lb_av] [facility] y height E&M 75 [in_i] [facility] y Body Mass Index (Ratio) 32.22 kg/m2 Jasiel Suazo MD blood pressure, diastolic 80 mm[Hg] Li nkLogic blood pressure, systolic 128 mm[Hg] Cynthia ogic blood pressure, diastolic 80 mm[Hg] Li nkLog blood pressure, systolic 128 mm[Hg] Cynthia og oxygen saturation, oximetry 98 % Merced Ventimiglia [facility] pulse rate 63 /min Merced Ventimig aguilar [facility] blood pressure, diastolic 80 mm[Hg] Am riddhi Ventimiglia TOBACCO SIZER blood pressure, systolic 128 mm[Hg] [place] nda Ventimiglia [facility] respiratory rate E&M 16 /min Merced Ventimiglia [facility] weight E&M 257.8 [lb_av] Merced ferro TOBACCO SIZER Body Mass Index (Ratio) 27.20 kg/m2 Jasiel [...] staples Miguel oxygen saturation, oximetry 98 % [facility] E&[facility] 16 /min [facility] Miguel pulse rate 82 /min [facility] weight E&M 201 [lb_av] [facility] blood pressure, resting Yes [facility] Miguel height E&M 75 [in_i] Lashae OMiguel Body Mass Index (Ratio) 26.37 kg/m2 Jasiel Suazo MD blood pressure, diastolic 72 mm[Hg] [...] iron binding capacity, unsaturated 181 ug/dL LinkLog[facility] [phone]/06/1 3 iron binding capacity, total 344 ug/dL [facility] 186-273 8326/06/1 3 lipoprotein, beta, serum, point, quantitative, calculated 66 mg/dL [facility] 0-99 3 HDL cholesterol, serum 70 mg/dL [facility] >39 3 triglyceride, serum, random 83 mg/dL [facility] 0-149 3 cholesterol, serum 152 mg/dL [facility] [phone]/06/1 3 calcium, serum 9.4 mg/dL [facility] 8.6-10.2 3 carbon dioxide, venous blood 25 mmol/L [facility] 20-29 3 chloride, serum 98 mmol/L [facility] 96-106 3 potassium, serum 4.0 mmol/L [facility] 3.5-5.2 3 sodium, serum 139 mmol/L [facility] [phone]/06/1 3 urea nitrogen/creatinine ratio, serum 12 LinkLogic [...] by mouth once a day Merced Ventimiglia TOBACCO SIZER #30, 30 days supply, Filled 05/09/2018 lisinopril 10 mg tablet active 1 tablet by mouth once a day Merced Ventimiglia TOBACCO SIZER #30, 30 days supply, Filled 06/11/2018 Eliquis 5 mg tablet active 1 capsule twice a day Merced Ventimiglia TOBACCO SIZER #60, 30 days supply, Filled 06/12/2018 atorvastatin 80 mg tablet active 1 capsule once a day Merced Ventimiglia TOBACCO SIZER #30, 30 days supply, Filled 06/12/2018 metoprolol tartrate 25 mg tablet active 1 capsule twice a day Merced Ventimiglia TOBACCO SIZER #60, 30 days supply, Filled 06/21/2018 venlafaxine 75 mg capsule,extended release 24hr active 1 capsule by mouth once a day Merced Ventimiglia TOBACCO SIZER #30, 30 days supply, Filled 06/27/2018 SOCIAL [...] Avery NP cigarette use yes Wagner Avery CRNA smoking status Former smoker Wagner Leone ri CRNA personal history of marijuana use no Merced Ventimiglia [facility] drug use no Merced Ventimig aguilar [facility] alcohol use, type wine Merced Dennis timiglia [facility] alcohol use, average drinks per day 1 /d Merced Ventimiglia [facility] alcohol use yes Merced Ventimig aguilar [facility] passive cigarette sm alexandra exposure no Merced Ventimiglia [facility] cigarette use yes Merced Ventimi glia [facility] smoking status Former smoker Mercedriddhi Powell miglia 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 Mercedriddhi Santiago [facility] Cardiology: H is updated medication list for this problem includes: Atorvastatin 80 Mg Tablet (Atorvastatin) ..... 1 capsule once a day [facility] Cardiology:controlle d H is updated medication list for this problem includes: Lisinopril 10 Mg Tablet (Lisinopril) ..... 1 tablet by mouth once a day Metoprolol Tartrate 25 Mg Tablet (Metoprolol tartrate) ..... 1 capsule twice a day Amlodipine 10 Mg Tablet (Amlodipine) [facility] Cardiology:chronic i n nature r ecent tele monitor showed H is updated medication list for this problem includes: Metoprolol Tartrate 25 Mg Tablet (Metoprolol tartrate) ..... 1 capsule twice a day Mercedriddhi Santiago [facility] Cardiology:More pers istent recently associated with his SOB N o acute focal neuro deficit noted on exam today W ill do carotid duplex to r/o stenosis w ill review tele monitor Merced Rosaskatherinebalaji [facility] Cardiology:Patient i s reporting new onset SOB [...] Amlodipine 10 Mg Tablet (Amlodipine) Merced Jack [facility] Cardiology Jostin Suazo MD Cardiology Jostin Suazo [...]
--- OUTSIDE RECORDS SUMMARY | 2024-07-19 12:47 | XMS_ITS ---
Author Organization [facility] Address [address] [place] [address] Phone Care Team Providers Care After School Driver Name Role Phone Aebl Mckenna DO Primary Care Provider Edward Ferrer MD Unavailable [phone] [facility] Status:Enrolled (Active) Start date:01/18/2024 Enrollment date:01/18/2024 Related social drivers of health:Intimate Partner Violence, Social Connections, Alcohol Use, Tobacco Use, Financial Resource Strain,Depression, Stress, Physical Activity, Food Insecurity, Transportation Needs, Housing Stability, Utilities Continued Care and Services Coordination
--- OUTSIDE RECORDS SUMMARY | 2024-07-19 12:47 | XMS_ITS | Clinical Summary ---
Author Organization [facility] Address [address] [place] [place] [address] Phone Care Team Providers Care Refrigerator Cabinetmaker Name Role Phone Abel Mckenna DO Primary [...] 01/01/2025 11:00 AM CDT Office Visit [facility] - Neurology [facility] [address] [place] [address] Edward Ferrer MD [address] [place] [phone] Health Maintenance Due Date Last Done Comments Hepatitis C Virus (HCV) Screening 1961 TdaP Immunization 1961 Colonoscopy 2006 Colorectal Cancer Screening 2006 Cologuard 2011 Immunochemical Fecal Occult Blood 2011 Pneumococcal Immunization (50+ years) (1 of 1 - PCV) 2011 Zoster Immunization (1 of 2) 2011 SARS-COV-2 Immunization ( season) 2023 02/11/2023, 04/12/2021, 08/24/2020 Influenza Immunization (Season Ended) 2024 02/11/2023, 01/22/2022, 04/12/2021, Additional history exists Respiratory Syncytial Virus (RSV) Immunization (Adult) (1 [...] 4.00 ng/mL 10/17/2017 1:39 PM CDT [facility] Blood specimen (specimen) Venipuncture / Unknown 10/17/2017 10:33 AM CDT 10/17/2017 10:42 AM CDT Narrative [facility] - 10/17/2017 1:39 PM CDT PSA NOTE: The PSA value should be used in conjunction with information available from clinical evaluation and other diagnostic procedures. Domingo Valdez MD CHEMISTRY ORDERABLES Final Result [facility] [address] [place] [address] from Last 3 Months or Most Recently Relevant to Health Maintenance Additional Health Concerns Infection Onset Date Last Indicated MRSA 11/21/2017 11/21/2017 Insurance MEDICAID [place] Care Teams Refrigerator Cabinetmaker Relationship Specialty Start Date End Date Abel Mckenna DO [facility] [place] [address] PCP - General Internal Medicine 10/17/17 Edward Ferrer MD [address] [place] [address] Consulting Physician Neurology 12/17/21
== END 2024-07-19 12:32 | disposition home or self-care (01) ==
PROVIDERS: PCP Nurse Practitioner; Visit Provider Internal Medicine Endocrinology, Diabetes & Metabolism
DX: E04.1 Nontoxic single thyroid nodule (principal)
CPT/HCPCS: 10005; 88172; 88173; 88177; 88305

== ENCOUNTER 2024-09-04 12:40 | Outpatient (CLI) | payer OTHER, SELFPAY ==
--- NOTE | ~2024-09-04 | US_ITS ---
EXAMINATION: US FNA w image guidance DATE: 09/04/2024 13:37 INDICATION: Left thyroid nodule TECHNIQUE: A time-out was performed to verify the patient's name, date of , and procedure to be performed . The procedure and its benefits and risks were discussed with the patient. Risks specifically discus sed included bleeding and infection. The patient understood the risks and agreed to proceed. The neck was prepped and draped in the usual sterile manner. 3 mL 1% lidocaine was used for local anesthesia . 6 passes were made with a 25G needle into the lesion. Appropriate needle location was documented with continuous sonographic guidance. A sterile bandage was applied. There were no immediate compli cations. FINDINGS: Grayscale ultrasound images demonstrate biopsy needles advanced into a 2.1 x 0.7 x 0.7 cm hypoechoic left thyroid nodule. IMPRESSION: 1. Successful ultrasound-guided fine needle aspiration of a 2.1 cm TI RADS 4 left thyroid nodule. Reviewed, dictated and finalized at location A. IMPRESSION: 1. Successful ultrasound-guided fine needle aspiration of a 2.1 cm TI RADS 4 l eft thyroid nodule.
--- OUTSIDE RECORDS SUMMARY | 2024-09-04 12:50 | XMS_ITS | CONTINUITY OF CARE DOCUMENT ---
Author Name ravin luis antonioanton Address Unknown Organization [facility] Address [address] [place] [address] Phone [phone] Care Team Providers Care Men'S Leather Dress Belt Maker Name Role Phone Jostin Suazo MD Unavailable [phone] PLACIDO CESAR DO Unavailable PLACIDO CESAR DO Unavailable [phone] PROBLEMS Condition Status Date Provider Notes Cardiology examination active Saranya Sanders in BROOMMAKING SUPERVISOR Chronic atrial fibrillation active Saranya hood BROOMMAKING SUPERVISOR Hypertension active Saranya Kaplan BROOMMAKING SUPERVISOR Hyperlipidemia active Saranya Kaplan BROOMMAKING SUPERVISOR Hypothyroidism active Saranya Kaplan BROOMMAKING SUPERVISOR Obstructive sleep apnea active Saranya alvarado BROOMMAKING SUPERVISOR Atrial Fibrillation active ? Saranya Kaplan NP Cerebrovascular Disease active ? Saranya alvarado BROOMMAKING SUPERVISOR (History of) CVA active Jostin Suazo MD C V A / Stroke active Jostin Suazo MD (His tory of) Shortness of breath active Merced Ventimigl ia TRAVELING SALES EXECUTIVE Dizziness active Merced Ventimiglia TRAVELING SALES EXECUTIVE ENCOUNTERS Date Type Provider Location Encounter Diag nosis 10/31 - 10/31 In-person encounter Office Visit Jostin Suazo MD [facility] 09/19 - 09/20 In-person encounter Office Visit Jostin Suazo MD [facility] [facility] Shortness of breathDizziness 10/01 - 10/01 In-person encounter Office Visit Jostin Suazo MD [facility] C V A / Stroke 08/01 - 08/02 In-person encounter Office Visit Jostin Suazo MD [facility] CVA 07/04 - 07/04 In-person encounter Office Visit Jostin Suazo MD [facility] Cardiology examinationChronic atrial fibrillationHypertensionHyperlipidemiaHypothyroidis mObstructive sleep apneaAtrial FibrillationCerebrovascular Disease VITAL SIGNS Date Observation Value Provider Body Mass Index (Ratio) 30.99 kg/m2 Jasiel Suazo MD blood pressure, diastolic 71 mm[Hg] Ja et blood pressure, systolic 116 mm[Hg] Jar ret pulse rate 73 /min [facility] y oxygen saturation, oximetry 97 % [facility] respiratory rate E&M 14 /min [facility] blood pressure, cuff size regular [facility] weight E&M 248 [lb_av] [facility] y height E&M 75 [in_i] [facility] y Body Mass Index (Ratio) 32.22 kg/m2 Jasiel Suazo MD blood pressure, diastolic 80 mm[Hg] Li nkLogic blood pressure, systolic 128 mm[Hg] Cynthia ogic blood pressure, diastolic 80 mm[Hg] Li nkLog blood pressure, systolic 128 mm[Hg] Cynthia og oxygen saturation, oximetry 98 % Merced Ventimiglia [facility] pulse rate 63 /min Merced Ventimig aguilar [facility] blood pressure, diastolic 80 mm[Hg] Am riddhi Ventimiglia TRAVELING SALES EXECUTIVE blood pressure, systolic 128 mm[Hg] [place] nda Ventimiglia [facility] respiratory rate E&M 16 /min Merced Ventimiglia [facility] weight E&M 257.8 [lb_av] Merced ferro TRAVELING SALES EXECUTIVE Body Mass Index (Ratio) 27.20 kg/m2 Jasiel [...] staples Miguel oxygen saturation, oximetry 98 % [facility] E&M 16 /min [facility] Miguel pulse rate 82 /min [facility] weight E&M 201 [lb_av] [facility] blood pressure, resting Yes [facility] Miguel height E&M 75 [in_i] Lashae [...] iron binding capacity, unsaturated 181 ug/dL [facility] [phone]/06/1 3 iron binding capacity, total 344 ug/dL [facility] [phone]/06/1 3 lipoprotein, beta, serum, point, quantitative, calculated 66 mg/dL [facility] 0-99 3 HDL cholesterol, serum 70 mg/dL [facility] >39 3 triglyceride, serum, random 83 mg/dL [facility] 0-149 3 cholesterol, serum 152 mg/dL [facility] [phone]/06/1 3 calcium, serum 9.4 mg/dL [facility] 8.6-10.2 3 carbon dioxide, venous blood 25 mmol/L [facility] 20-29 3 chloride, serum 98 mmol/L [facility] 96-106 3 potassium, serum 4.0 mmol/L [facility] 3.5-5.2 3 sodium, serum 139 mmol/L [facility] [phone]/06/1 3 urea nitrogen/creatinine ratio, serum 12 LinkLogic [...] by mouth once a day Merced Ventimiglia TRAVELING SALES EXECUTIVE #30, 30 days supply, Filled 05/09/2018 lisinopril 10 mg tablet active 1 tablet by mouth once a day Merced Ventimiglia TRAVELING SALES EXECUTIVE #30, 30 days supply, Filled 06/11/2018 Eliquis 5 mg tablet active 1 capsule twice a day Merced Ventimiglia TRAVELING SALES EXECUTIVE #60, 30 days supply, Filled 06/12/2018 atorvastatin 80 mg tablet active 1 capsule once a day Merced Ventimiglia TRAVELING SALES EXECUTIVE #30, 30 days supply, Filled 06/12/2018 metoprolol tartrate 25 mg tablet active 1 capsule twice a day Merced Ventimiglia TRAVELING SALES EXECUTIVE #60, 30 days supply, Filled 06/21/2018 venlafaxine 75 mg capsule,extended release 24hr active 1 capsule by mouth once a day Merced Ventimiglia TRAVELING SALES EXECUTIVE #30, 30 days supply, Filled 06/27/2018 SOCIAL [...] Avery NP cigarette use yes Wagner Avery BROOMMAKING SUPERVISOR smoking status Former smoker Wagner Leone ri BROOMMAKING SUPERVISOR personal history of marijuana use no Merced Ventimiglia [facility] drug use no Merced Ventimig aguilar [facility] alcohol use, type wine Merced Dennis timiglia [facility] alcohol use, average drinks per day 1 /d Merced Ventimiglia [facility] alcohol use yes Merced Ventimig aguilar [facility] passive cigarette sm alexandra exposure no Merced Ventimiglia [facility] cigarette use yes Merced Ventimi glia [facility] smoking status Former smoker Mercedriddhi Powell miglia [facility] social history E&M Marital Statu s: C hildren: 2 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 Mercedriddhi Santiago [facility] Cardiology: H is updated medication list for this problem includes: Atorvastatin 80 Mg Tablet (Atorvastatin) ..... 1 capsule once a day [facility] Cardiology:controlle d H is updated medication list for this problem includes: Lisinopril 10 Mg Tablet (Lisinopril) ..... 1 tablet by mouth once a day Metoprolol Tartrate 25 Mg Tablet (Metoprolol tartrate) ..... 1 capsule twice a day Amlodipine 10 Mg Tablet (Amlodipine) [facility] Cardiology:chronic i n nature r ecent tele monitor showed H is updated medication list for this problem includes: Metoprolol Tartrate 25 Mg Tablet (Metoprolol tartrate) ..... 1 capsule twice a day Mercedriddhi Santiago [facility] Cardiology:More pers istent recently associated with his SOB N o acute focal neuro deficit noted on exam today W ill do carotid duplex to r/o stenosis w ill review tele monitor Merced Rosaskatherinebalaji [facility] Cardiology:Patient i s reporting new onset [...] a day Amlodipine 10 Mg Tablet (Amlodipine) Emrced Jack [facility] Cardiology Jostin Suazo MD Cardiology Jostin Suazo MD Cardiology Jostin Suazo MD Cardiology Jostin Suazo MD Cardiology Jostin Suazo MD Cardiology Jostin Suazo MD Cardiology Jostin Suazo MD Cardiology Jostin Suazo MD Cardiology Jostin Suazo MD Cardiology Jostin Suazo MD Cardiology Jostin Suazo MD Cardiology:Hx CVA 4 years ago. Had carotid dopplers with neurologist. Saranya Kaplan NP Cardiology:[place] labs [place] [facility] [place]. Saranya Kaplan NP Cardiology:controlle d. [...]
--- OUTSIDE RECORDS SUMMARY | 2024-09-04 12:50 | XMS_ITS | Clinical Summary ---
Author Organization [facility] Address [address] [place] [address] Phone Care Team Providers Care Accounting System Expert Name Role Phone Abel Mckenna DO Primary Care Provider Edward Ferrer MD Unavailable [phone] Allergies Active Allergy Reactions Criticality Noted Date [...] 11:00 AM CDT Office Visit [facility] - Neurology [facility] [address] [place] [address] Edward Ferrer MD [address] [place] [phone] Health Maintenance Due Date Last Done Comments [...] 4.00 ng/mL 10/17/2017 1:39 PM CDT [facility] Blood specimen (specimen) Venipuncture / Unknown 10/17/2017 10:33 AM CDT 10/17/2017 10:42 AM CDT Narrative [facility] - 10/17/2017 1:39 PM CDT PSA NOTE: The PSA value should be used in conjunction with information available from clinical evaluation and other diagnostic procedures. 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
--- OUTSIDE RECORDS SUMMARY | 2024-09-04 12:50 | XMS_ITS ---
Author Organization [facility] Address [address] [place] [address] Phone Care Team Providers Care Supervisor Electrolytic Tinning Name Role Phone Abel Mckenna DO Primary Care Provider Edward Ferrer MD Unavailable [phone] [facility] Status:Enrolled (Active) Start date:01/18/2024 Enrollment date:01/18/2024 Related social drivers of health:Intimate Partner Violence, Social Connections, Alcohol Use, Tobacco Use, Financial Resource Strain,Depression, Stress, Physical Activity, Food Insecurity, Transportation Needs, Housing Stability, Utilities Continued Care and Services Coordination
== END 2024-09-04 12:41 | disposition home or self-care (01) ==
PROVIDERS: PCP Nurse Practitioner; Visit Provider Internal Medicine Endocrinology, Diabetes & Metabolism
DX: E04.1 Nontoxic single thyroid nodule (principal)
CPT/HCPCS: 10005; 88172; 88173; 88305